=== PATIENT | female | born 1990 | race Two or more races ===

== ENCOUNTER 2016-12-19 19:21 | Emergency (ER) | payer SELFPAY ==
[2016-12-19 19:33] VITALS: BP 122/73
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
[2016-12-19] MEDS ORDERED: BUTALB/APAP/CAFEIN 50/325/40MG TABLET. PO ONE (20:15)
[2016-12-19] MEDS ORDERED: DIPHTH,PERTUSS(ACELL),TET TOX 0.5 ML DISP.SYRIN. VAX IM ONE (20:15)
[2016-12-19] MEDS ORDERED: BUTA1CAP29 PO (20:41)
[2016-12-19] MEDS ORDERED: CEPH500C PO (20:41)
[2016-12-19] MEDS ORDERED: IPRATRPIUM/ALBUTEROL 0.5/2.5MG 3 ML NEBU. NEB ONE (20:45)
[2016-12-19] MEDS ORDERED: ACETAMINOPHEN 325 MG TABLET. PO ONE (20:45)
[2016-12-19] MEDS ORDERED: NEOMY/BACITR/POLYMYXIN OINT PACKET. TP ONE (20:45)
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
== END 2016-12-19 20:52 | disposition home or self-care (01) ==
LOC: ER 19:21
DX: S61.302A Unspecified open wound of right middle finger with damage to nail, initial encounter (principal); S00.81XA Abrasion of other part of head, initial encounter; G43.909 Migraine, unspecified, not intractable, without status migrainosus; Y08.89XA Assault by other specified means, initial encounter; Y93.89 Activity, other specified; Y92.89 Other specified places as the place of occurrence of the external cause; Y99.8 Other external cause status
CPT/HCPCS: 73140; 90471; 90715; 99284-25

== ENCOUNTER 2021-11-25 09:05 | Emergency (ER) | payer MEDICAID ==
[~2021-11-25] VITALS: Ht 157.5 cm; Wt 70.9 kg
[~2021-11-25 09:05] MED LIST: BUTA1CAP29 PO; CEPH500C PO; DOCU-109 PO; FERR325T14 PO; IBUP-1060 PO
[2021-11-25] MEDS ORDERED: ORPHENADRINE CITRATE 60 MG/2 ML VIAL. IM ONE (09:30)
[2021-11-25] MEDS ORDERED: KETOROLAC 60 MG/2 ML VIAL. IM ONE (09:30)
--- NOTE | 2021-11-25 09:56 | PHYS DOC ---
Past Medical History Past Medical History: No Pertinent History Past Surgical History: No Surgical History Smoking Status: Never Smoker Alcohol Use: None Drug Use: None General Adult EDM: Chief Complaint: BACK PAIN - NO INJURY HPI: HPI: Patient is a 31 year old female who presents with 3-day history of right-sided low back pain. She rates her pain 9/10 and radiating both up the right side of her back and down her right leg. She describes the pain as sharp, but is sometimes burning also. Patient has had similar pain once before in the past, which she was treated with muscle relaxer pills. Patient states she visited the chiropractor, but it did not help her very much. Patient denies any injury or trauma, saddle anesthesia, bowel or bladder incontinence, IV drug use. Review of Systems: Review of Systems: Constitutional: Denies fever, chills or generalized weakness Eyes: Denies change in visual acuity, visual field deficits or discharge HENT: Denies ear pain, nasal congestion or sore throat Respiratory: Denies cough or shortness of breath Cardiovascular: Denies chest pain, palpitations or edema GI: Denies abdominal pain, nausea, vomiting, bloody stools or diarrhea : Denies dysuria or hematuria Musculoskeletal: See HPI Integument: Denies rash or other skin lesion Neurologic: See HPI Heart Score: C/O Chest Pain: No Current Medications: Current Medications Medications (Trade) Dose Ordered Sig/[facility] Start Time Stop Time Status Last Admin Dose Admin Ketorolac Tromethamine (Toradol Im) 60 mg 1X ONCE 11/25/21 09:30 11/25/21 09:31 DC 11/25/21 09:41 60 MG Orphenadrine Citrate (Norflex) 60 mg 1X ONCE 11/25/21 09:30 11/25/21 09:31 DC 11/25/21 09:40 60 MG Allergies: Allergies: Allergies Coded Allergies Type Severity Reaction Last Updated Verified No Known Drug Allergies 11/25/21 No Physical Exam: PE: Constitutional: Well developed, well nourished, no acute distress, non-toxic appearance. HENT: Normocephalic, atraumatic, bilateral external ears normal, nose normal. Eyes: EOMI, conjunctiva normal, no discharge. Neck: Normal range of motion, no tenderness, no stridor. Skin: Warm, dry, no erythema, no rash. Back: No stepoff, no midline, mild right sided lumbar tenderness with spasm. Extremities: No tenderness, no cyanosis, no clubbing, no edema. Active ROM intact bilateral lower extremitieship and knee flexion/extension, great toe dorsiflexion, Neurologic: Alert and oriented x4, no focal deficits noted, straight leg raise test negative bilaterally. Current Patient Data: Labs: Laboratory Tests Test 11/25/21 09:20 POC Urine HCG, Qualitative Hcg negative (Negative) Vital Signs: Vital Signs Date Time Temp Pulse Resp B/P (MAP) Pulse Ox O2 Delivery O2 Flow Rate FiO2 11/25/21 09:16 97.9 75 20 115/57 (76) 98 Room Air 97.9 Course & Med Decision Making: Course & Med Decision Making Pertinent Labs and Imaging studies reviewed. (See chart for details) Patient is a 31-year-old female who presents with 3-day history of right-sided back pain. No history of trauma or injury, negative straight leg raise. Patient likely has muscle spasm of the right low back. Patient will be treated with Toradol and Norflex IM. On reevaluation, patient states that her symptoms have improved, but they are not completely resolved. Advised patient that I will take a couple of days for her to start feeling back to normal, as there is significant inflammation as a result of the spasm. All patient's questions were answered. A work note was provided for the patient. Return precautions provided as well. Should her pain become recurrent or chronic, she was provided with Dr. Wise paint booth operator contact information. Patient understands and is agreeable to discharge plan. Aryan Disclaimer: Aryan Disclaimer: This electronic medical record was generated, in whole or in part, using a voice recognition dictation system. Departure Departure Impression: Primary Impression: Spasm of muscle of lower back Disposition: HOME / SELF CARE / HOMELESS Condition: IMPROVED Referrals: NO PCP (PCP) THEA WISE MD Patient Instructions: Back Exercises, [id number], Back Pain, Adult, [id number] Additional Instructions: EMERGENCY DEPARTMENT GENERAL DISCHARGE INSTRUCTIONS Thank you for coming to [facility] Emergency Department (ED) today and trusting us with you care. We trust that you had a positive experience in our Emergency Department. If you wish to speak to the department management, you may call the director at . YOUR FOLLOW UP INSTRUCTIONS ARE FOLLOWS: 1. Follow up with your primary care doctor. If you do not have a primary doctor, please ask for a resource list of physicians or clinics that may be able to assist you with follow up care. 2. The emergency provider has interpreted your imaging studies, if any were ordered. The radiology machine specialist also reviewed them. If there is a change in the findings, you will be notified in 48 hours when at all possible. 3. If a lab test or culture has been done, your results will be reviewed and you will be notified if you need a change in treatment. 4. Follow instructions verbalized to you and refer to the printouts if needed. ADDITIONAL INSTRUCTIONS AND INFORMATION: 1. Your care today has been supervised by a physician who is specially trained in emergency care. Many problems require more than one evaluation for a complete diagnosis and treatment. We recommend that you schedule your follow up appointment as recommended to ensure complete treatment of you illness or injury. If you are unable to obtain follow up care and continue to have a problem, or if your condition worsens, we recommend that you return to the ED. 2. We are not able to safely determine your condition over the phone nor are we able to give sound medical advice over the phone. For these safety reasons, if you call for medical advice we will ask you to come to the ED for further evaluation. 3. If you have any questions regarding these discharge instructions please call the ED at . SAFETY INFORMATION: In the interest of safety, wellness, and injury prevention; we encourage you to wear your seat belt, if you smoke; quite smoking, and we encourage family to use a protective helmet for bicycling and other sporting events that present an increased risk for head injury. IF YOUR SYMPTOMS WORSEN OR NEW SYMPTOMS DEVELOP, OR YOU HAVE CONCERNS ABOUT YOUR CONDITION; OR IF YOUR CONDITION WORSENS WHILE YOU ARE WAITING FOR YOUR FOLLOW UP APPOINTMENT; EITHER CONTACT YOUR PRIMARY CARE DOCTOR, THE PHYSICIAN WHOSE NAME AND NUMBER YOU WERE GIVEN, OR RETURN TO THE ED IMMEDIATELY. Scripts Naproxen (NAPROXEN) 500 Mg Tablet 1 TAB PO Q12HR for pain, #20 TAB 0 Refills Prov: MARIKA MEHTA 11/25/21 Orphenadrine Citrate (ORPHENADRINE CITRATE) 100 Mg Tablet.er 1 TAB PO Q12HR, #20 TAB 0 Refills Prov: MARIKA MEHTA 11/25/21 MARIKA MEHTA Nov 25, 2021 09:56
[2021-11-25 10:16] VITALS: BP 108/55
[2021-11-25] MEDS ORDERED: NAPR-514 PO (10:24)
[2021-11-25] MEDS ORDERED: ORPH100T PO (10:24)
== END 2021-11-25 10:35 | disposition home or self-care (01) ==
LOC: ER 09:05
DX: M62.830 Muscle spasm of back (principal)
CPT/HCPCS: 81025; 96372; 99284; J1885; J2360